=== PATIENT | female | born 1985 | race Caucasian/White ===

== ENCOUNTER → 2021-01-31 | Outpatient (CLI) | payer OTHER ==
--- NOTE | 2021-02-01 06:48 | RAD ---
XR LUMBAR SPINE 2-3V History: Reason: JOINT PAIN AND BACK PAIN FOR 2 YEARS/ NO KNOWN INJURY / Spl. Instructions: / Histor y: Technique: 2 views lumbar spine. Comparison: None. Findings: Normal vertebral body height and alignment. Multilevel degenerative disc changes most prominent moder ate L5-S1. Facet arthropathy. Impression: 1. Multilevel lumbar spondylosis most prominent L5-S1. Electronically signed by: Anthony Randall DO (02/01/2021 6:45 AM) VADIM
== END ==
LOC: RAD 12:10
PROVIDERS: ATTEND Surgery
DX: M47.816 Spondylosis without myelopathy or radiculopathy, lumbar region (principal); M25.561 Pain in right knee
CPT/HCPCS: 72100